=== PATIENT | female | born 1955 | race Caucasian/White ===

== ENCOUNTER 2021-07-16 04:57 | Day surgery (SDC) | payer OTHER, BC ==
[2021-05-30 16:46] VITALS: BMI 36.5
[2021-07-16 10:03] VITALS: TEMP 98.2
[2021-07-16 10:54] VITALS: BP 122/61; PULSE 62
== END 2021-07-16 11:21 | disposition home or self-care (01) ==
LOC: JASU-ENDO 04:57
PROVIDERS: ATTEND Internal Medicine Gastroenterology
PROC: 0DBL8ZX Excision of Transverse Colon, Via Natural or Artificial Opening Endoscopic, Diagnostic (ICD-10-PCS; 2021-07-16)
PROC: 0DBP8ZX Excision of Rectum, Via Natural or Artificial Opening Endoscopic, Diagnostic (ICD-10-PCS; principal; 2021-07-16 09:00)
DX: Z12.11 Encounter for screening for malignant neoplasm of colon (principal); Z86.010 Personal history of colon polyps; D12.3 Benign neoplasm of transverse colon; K62.1 Rectal polyp; K57.30 Diverticulosis of large intestine without perforation or abscess without bleeding
CPT/HCPCS: 88305-TC

== ENCOUNTER 2022-12-16 04:30 | Day surgery (SDC) | payer OTHER, BC ==
[2022-12-13 10:39] VITALS: BMI 37.9
[2022-12-16 09:31] VITALS: TEMP 98
[2022-12-16 10:14] VITALS: BP 134/56; PULSE 61; RESP 16
== END 2022-12-16 10:00 | disposition home or self-care (01) ==
LOC: JASU-ENDO 04:30
PROVIDERS: ATTEND Internal Medicine Gastroenterology
PROC: 0DBL8ZX Excision of Transverse Colon, Via Natural or Artificial Opening Endoscopic, Diagnostic (ICD-10-PCS; 2022-12-16)
PROC: 0DBN8ZX Excision of Sigmoid Colon, Via Natural or Artificial Opening Endoscopic, Diagnostic (ICD-10-PCS; 2022-12-16)
PROC: 0DBP8ZX Excision of Rectum, Via Natural or Artificial Opening Endoscopic, Diagnostic (ICD-10-PCS; principal; 2022-12-16 09:00)
DX: Z12.11 Encounter for screening for malignant neoplasm of colon (principal); D12.3 Benign neoplasm of transverse colon; D12.5 Benign neoplasm of sigmoid colon; D12.8 Benign neoplasm of rectum; K57.30 Diverticulosis of large intestine without perforation or abscess without bleeding; Z86.010 Personal history of colon polyps
CPT/HCPCS: 88305-TC

== ENCOUNTER 2023-08-31 13:15 | Emergency (ER) | payer OTHER, BC ==
[2023-08-31 13:33] VITALS: TEMP 98.5; BMI 35.7
[2023-08-31 19:54] VITALS: BP 124/90; PULSE 69; RESP 15
== END 2023-08-31 21:43 | disposition home or self-care (01) ==
LOC: FER 13:15
DX: S00.81XA Abrasion of other part of head, initial encounter (principal); R22.0 Localized swelling, mass and lump, head; R51.9 Headache, unspecified; W01.0XXA Fall on same level from slipping, tripping and stumbling without subsequent striking against object, initial encounter; Y93.01 Activity, walking, marching and hiking
CPT/HCPCS: 70450-TC; 70486-TC; 72125-TC; 99284-25

== ENCOUNTER 2024-04-14 23:40 | Emergency (ER) | payer OTHER, MEDICARE ==
[2024-04-14 23:55] VITALS: BMI 36.6
[2024-04-15 01:14] LABS: HEMATOCRIT 41.9 % (32.4-45.2); HEMOGLOBIN 14.1 GM/dL (10.7-15.3); MCH 32.1 pg (25.7-33.7); MCHC 33.7 g/dl (32.0-36.0); MEAN CELL VOLUME 95.4 fl (80-96); MEAN PLT VOLUME 9.2 fl (7.5-11.1); PLATELET COUNT 194 10^3/uL (134-434); RBC 4.39 M/mm3 (3.60-5.2); RDW 13.2 % (11.6-15.6); WHITE BLOOD COUNT 8.4 K/mm3 (4.0-10.0)
[2024-04-15 01:23] LABS: INR 0.92 (0.83-1.09); PROTHROMBIN TIME (PATIENT) 10.4 SEC (9.7-13.0)
[2024-04-15 01:33] LABS: POTASSIUM 3.6 mmol/L (3.5-5.1)
[2024-04-15 01:35] LABS: CALCIUM 8.5 mg/dL (8.5-10.1)
[2024-04-15 01:36] LABS: ALBUMIN 3.4 g/dl (3.4-5.0); BLOOD UREA NITROGEN 18.9 mg/dL (7-18); MAGNESIUM 2.2 mg/dL (1.8-2.4)
[2024-04-15 01:39] LABS: CREATININE 0.7 mg/dL (0.55-1.3); PHOSPHOROUS 2.9 mg/dL (2.5-4.9)
[2024-04-15 01:40] LABS: BILIRUBIN,TOTAL 0.3 mg/dL (0.2-1); TOT PROT 7.2 g/dl (6.4-8.2)
[2024-04-15] MEDS ORDERED: DOCUSATE SODIUM 100 MG CAPSULE (FP) PO PRN (02:41)
[2024-04-15] MEDS ORDERED: ACETAMINOPHEN 1000 MG/100 ML BAG IVPB PRN (02:50)
[2024-04-15] MEDS ORDERED: MELATONIN 5 MG TABLETS PO PRN (02:51)
[2024-04-15 09:23] VITALS: BP 125/82; PULSE 80; RESP 18; TEMP 98.7
[2024-04-15] MEDS: AMOX TR/POT CLAV 500MG/125MG TABLETS (FP) PO SCH (09:46)
[2024-04-15] MEDS: CHOLECALCIFEROL (VIT D3) 400 UNIT (10 MCG) TABLET PO SCH (09:47)
[2024-04-15] MEDS: ASCORBIC ACID 500 MG TABLET (FP) PO SCH (09:47)
[2024-04-15] MEDS: ZINC SULFATE 220 MG CAPSULE (FP) PO SCH (09:47)
[2024-04-15] MEDS ORDERED: ATORVASTATIN CA 10 MG TABLET (FP) PO SCH (22:00)
[2024-04-16] MEDS ORDERED: ACETAMINOPHEN 325 MG TABLET (FP) PO PRN (02:41)
== END 2024-04-15 12:38 | disposition home or self-care (01) ==
LOC: FER 23:40 → FM/S 04-15 02:18
PROVIDERS: ADMIT Internal Medicine; ATTEND Internal Medicine
PROC: 2Y41X5Z Packing of Nasal Region using Packing Material (ICD-10-PCS; principal; 2024-04-15)
DX: R04.0 Epistaxis (principal)
CPT/HCPCS: 30905; 36415; 71045-TC-FY; 80053; 83735; 84100; 85027; 85610; 93005; 99285-25; G0378